=== PATIENT | male | born 1980 | race Caucasian/White ===

== ENCOUNTER 2018-07-12 07:08 | Emergency (ER) | payer OTHER ==
[~2018-07-12] VITALS: Ht 188 cm; Wt 71.7 kg
[~2018-07-12 07:08] MED LIST: ANUSOL-HC25 MG; DEXAMETHASO4 MG/1 ML; DEXAMETHASONE INJECTION; FLORINEF ACETA0.1 MG PO; HYDROCODONE-AP1 EAC6 PO; LEVOTHYROXIN0.175 MG; ZOFRAN ODT4 MG PO
[2018-07-12] MEDS ORDERED: NORCO 5-325 TA1 EACH PO (08:35)
[2018-07-12] MEDS ORDERED: IBUPROFEN 800800 MG PO (08:35)
[2018-07-12 08:47] VITALS: BP 148/88
== END 2018-07-12 08:48 | disposition home or self-care (01) ==
LOC: M.ERS 07:08
DX: S70.11XA Contusion of right thigh, initial encounter (principal); W20.8XXA Other cause of strike by thrown, projected or falling object, initial encounter; Y93.89 Activity, other specified; Y92.89 Other specified places as the place of occurrence of the external cause; Y99.8 Other external cause status; Z90.49 Acquired absence of other specified parts of digestive tract; E89.0 Postprocedural hypothyroidism; F17.210 Nicotine dependence, cigarettes, uncomplicated

== ENCOUNTER 2018-12-01 09:09 | Emergency (ER) | payer OTHER ==
[~2018-12-01] VITALS: Ht 188 cm; Wt 68.0 kg
[~2018-12-01 09:09] MED LIST changes: +IBUPROFEN 800800 MG PO; +NORCO 5-325 TA1 EACH PO
[2018-12-01 09:53] LABS: CALCIUM 8.6 mg/dL (8.5-10.1); CREATININE 0.9 mg/dL (0.6-1.3); POTASSIUM 3.2 mmol/L (3.5-5.1)
[2018-12-01 10:36] VITALS: BP 121/84
== END 2018-12-01 10:42 | disposition home or self-care (01) ==
LOC: M.ERS 09:09
PROVIDERS: Emergency Medicine Emergency Medical Services
DX: R51 Headache (principal); Z90.49 Acquired absence of other specified parts of digestive tract; E89.0 Postprocedural hypothyroidism; F17.210 Nicotine dependence, cigarettes, uncomplicated

== ENCOUNTER 2018-12-30 06:37 | Emergency (ER) | payer OTHER ==
[~2018-12-30] VITALS: Ht 188 cm; Wt 68.0 kg
[2018-12-30] MEDS ORDERED: CORTEF10 MG (06:47)
[2018-12-30] MEDS ORDERED: AMOXICILLIN 50500 MG PO (07:40)
[2018-12-30] MEDS ORDERED: ULTRAM 50MG TAB50 MG PO (07:40)
[2018-12-30 08:15] VITALS: BP 170/99
== END 2018-12-30 08:17 | disposition home or self-care (01) ==
LOC: M.ERS 06:37
DX: K04.7 Periapical abscess without sinus (principal); F17.210 Nicotine dependence, cigarettes, uncomplicated; Z90.89 Acquired absence of other organs; Z90.49 Acquired absence of other specified parts of digestive tract

== ENCOUNTER 2019-12-29 23:41 | Emergency (ER) | payer OTHER ==
[~2019-12-29] VITALS: Ht 188 cm; Wt 72.6 kg
[~2019-12-29 23:41] MED LIST changes: +AMOXICILLIN 50500 MG PO; +CORTEF10 MG; +ULTRAM 50MG TAB50 MG PO
[2019-12-30] MEDS ORDERED: NORCO 5-325 TA1 EAC1 PO (00:04)
[2019-12-30 00:27] VITALS: BP 121/98
== END 2019-12-30 00:27 | disposition home or self-care (01) ==
LOC: M.ERS 23:41
DX: S40.012A Contusion of left shoulder, initial encounter (principal); F17.210 Nicotine dependence, cigarettes, uncomplicated; Z90.49 Acquired absence of other specified parts of digestive tract; V29.9XXA Motorcycle rider (driver) (passenger) injured in unspecified traffic accident, initial encounter; Y93.89 Activity, other specified; Y92.89 Other specified places as the place of occurrence of the external cause; Y99.8 Other external cause status

== ENCOUNTER 2020-12-19 11:35 | Emergency (ER) | payer OTHER ==
[~2020-12-19] VITALS: Ht 182.9 cm; Wt 68.0 kg
[~2020-12-19 11:35] MED LIST changes: +NORCO 5-325 TA1 EAC1 PO
[2020-12-19] MEDS ORDERED: DEXAMETHAS10 MG/1 M1 SUBQ (11:56)
[2020-12-19 13:23] VITALS: BP 145/54
== END 2020-12-19 13:24 | disposition home or self-care (01) ==
LOC: M.ERS 11:35
DX: G43.909 Migraine, unspecified, not intractable, without status migrainosus (principal); F17.210 Nicotine dependence, cigarettes, uncomplicated; Z79.899 Other long term (current) drug therapy; Z90.49 Acquired absence of other specified parts of digestive tract

== ENCOUNTER 2021-08-12 05:21 | Emergency (ER) | payer OTHER ==
[~2021-08-12] VITALS: Ht 188 cm; Wt 72.6 kg
[~2021-08-12 05:21] MED LIST changes: +DEXAMETHAS10 MG/1 M1 SUBQ
[2021-08-12 06:03] LABS: ABSOLUTE LYMPHOCYTES 0.8 thou/uL (0.8-5.3); ABSOLUTE MONOCYTES 0.4 thou/uL (0.0-1.2); ABSOLUTE NEUTROPHILS 3.2 thou/uL (1.6-8.1); BASOPHILS 0.3 %; EOSINOPHILS 0.3 %; HEMATOCRIT 35.7 % (42.0-52.0); HEMOGLOBIN 12.2 gm/dL (14.0-18.0); LYMPHOCYTES 17.5 %; MCH 29.6 pg (26.0-34.0); MCHC 34.2 g/dL (28.0-37.0); MCV 86.7 fL (80.0-100.0); MONOCYTES 8.2 %; MPV 8.4 fl. (7.2-11.1); NUCLEATED RBCS 0 /100WBC; PLATELET COUNT* 138 thou/uL (150-400); POLYS 73.7 %; RBC 4.13 mil/uL (4.50-6.00); RDW-CV 13.2 % (10.5-14.5); WBC 4.3 thou/uL (4.0-11.0)
[2021-08-12 06:17] LABS: CALCIUM 7.7 mg/dL (8.5-10.1); CREATININE 0.8 mg/dL (0.6-1.3); POTASSIUM 3.1 mmol/L (3.5-5.1)
[2021-08-12 06:23] LABS: ALBUMIN 3.1 g/dL (3.4-5.0); TOTAL BILIRUBIN 0.3 mg/dL (<0.1-1.0); TOTAL PROTEIN 6.7 g/dL (6.4-8.2)
[2021-08-12] MEDS ORDERED: DEXAMETHASONE 44 M1 PO (07:28)
[2021-08-12] MEDS ORDERED: ZOFRAN ODT4 MG DISSOLVE (07:28)
[2021-08-12 07:40] VITALS: BP 150/92
--- NOTE | 2021-08-12 10:41 | EKG ---
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[place] : 1980 Requested By: Clay Vang Order Number: [id number] MD: Javier Jaquez Measurements Intervals [place] Rate: 61 P: 60 DC: 143 QRS: 80 QRSD: 114 T: 63 QT: 405 QTc: 408 Interpretive Statements Sinus rhythm Left ventricular hypertrophy ST elev, probable normal early repol pattern Baseline wander in lead(s) V6 No previous ECG available for comparison Electronically Signed On 08-12-2021 10:41:15 [employer]STING [employer]OM HEL[employer] by Javier Jaquez [email or web address] <ELECTRONICALLY SIGNED> By: Javier Jaquez MD, [facility] 08/12/21 1041 0548 0548 Javier Jaquez MD, [facility] /EPI
== END 2021-08-12 07:42 | disposition home or self-care (01) ==
LOC: M.ERS 05:21
PROVIDERS: Emergency Medicine Emergency Medical Services
DX: U07.1 COVID-19 (principal); R11.2 Nausea with vomiting, unspecified; F17.210 Nicotine dependence, cigarettes, uncomplicated; Z90.89 Acquired absence of other organs; Z90.49 Acquired absence of other specified parts of digestive tract; Z79.899 Other long term (current) drug therapy